=== PATIENT | female | born 1975 | race Caucasian/White ===

== ENCOUNTER 2016-09-26 19:02 | Observation (INO) | payer OTHER ==
[2016-09-26] MEDS ORDERED: NS 1,000 ML IV ONE (19:45)
[2016-09-26 19:51] LABS: % IMMATURE GRANULYOCYTES 0.4 % (0.0-1.1); ABSOLUTE IMMATURE GRANULOCYTES 0.06 10^3/uL (0.00-0.10); ADD DIFF? NO; ADD MORPH? NO; ADD SCAN? NO; ATYPICAL LYMPHOCYTE FLAG 10 (0-99); FRAGMENT RBC FLAG 0 (0-99); HEMATOCRIT 43.4 % (38.0-47.0); HEMOGLOBIN 14.5 g/dL (12.6-16.3); LEFT SHIFT FLG 0 (0-99); LIPEMIA HEMOLYSIS FLAG 80 (0-99); MEAN CELL HEMOGLOBIN 30.9 pg (27.9-34.1); MEAN CELL HEMOGLOBIN CONCENTR. 33.4 g/dL (32.4-36.7); MEAN CELL VOLUME 92.5 fL (81.5-99.8); MEAN PLATELET VOLUME 9.4 fL (8.7-11.7); PLATELET CLUMPS FLAG 20 (0-99); PLATELET COUNT 254 10^3/uL (150-400); RED BLOOD CELL COUNT 4.69 10^6/uL (4.18-5.33); RED CELL DISTRIBUTION WIDTH 13.3 % (11.5-15.2)
[2016-09-26 20:00] LABS: CALCIUM 8.9 mg/dL (8.5-10.4); CARBON DIOXIDE 22 mEq/l (22-31); CHLORIDE 102 mEq/L (97-110); CREATININE 0.7 mg/dL (0.6-1.0); GLOMERULAR FILTRATION RATE > 60; GLUCOSE 95 mg/dL (70-100); SODIUM 138 mEq/L (134-144)
[2016-09-26 20:27] LABS: ANION GAP 14 mEq/L (8-16); POTASSIUM 3.9 mEq/L (3.5-5.2)
--- NOTE | 2016-09-26 20:45 | EDPHY ---
H & P Time Seen by Provider: 09/26/16 20:41 HPI/ROS: Chief complaint. Abdominal pain HPI. 40-year-old female presents emergency department with abdominal pain that began yesterday. It was initially generalized and then has migrated to the right lower abdomen. Hurts to walk. She felt somewhat weak yesterday afternoon on hike. Pain continues today. She has been intermittently sweaty and maybe fever last night. 1 episode of diarrhea this morning but no vomiting. She had similar symptoms 1 month ago. No abdominal history or previous abdominal surgery ROS Constitutional. no fever/chills, no weakness Eyes. no problems with vision ENT. no sore throat, no nasal drainage Cardiovascular. no chest pain Respiratory. no shortness of breath, no cough Abdominal. Right lower quadrant abdominal pain with 1 episode of diarrhea . no problems urinating MS. no calf pain/swelling, no neck/back pain, no joint pain Skin. no rash Lymph. no swollen glands Neuro. no headache, no dizziness, no difficulty walking or with speech Past Medical/Surgical History: Past medical history G2/P 1 with D&C. Otherwise healthy Social History: , nonsmoker, no alcohol Smoking Status: Never smoked Physical Exam: General Appearance: Alert pleasant well-developed female mild distress vital signs significant for initial heart rate 110 Eyes: Pupils equal and round no pallor or injection. ENT, Mouth: Mucous membranes are moist. Respiratory: There are no retractions, lungs are clear to auscultation. Cardiovascular: Regular rate and rhythm. Gastrointestinal: Abdomen is soft and tenderness at McBurney's point. No masses. Normal bowel sounds Neurological: Awake and alert, sensory and motor exams grossly normal. Skin: Warm and dry, no rashes. Musculoskeletal: Neck is supple nontender. Extremities symmetrical, full range of motion. Psychiatric: Patient is oriented X 3, there is no agitation. Constitutional: Initial Vital Signs Temperature (C) 36.8 C 09/26/16 19:22 Heart Rate 110 H 09/26/16 19:22 Respiratory Rate 16 09/26/16 19:22 Blood Pressure 105/84 H 09/26/16 19:22 O2 Sat (%) 96 09/26/16 19:22 O2 Delivery Mode Room Air Allergies/Adverse Reactions: No Known Allergies Allergy (Unverified 09/26/16 19:28) Home Medications: Medication Instructions Recorded NK [No Known Home Meds] 09/26/16 Medical Decision Making - Diagnostics Imaging Results: Imaging Impressions Abdomen Ultrasound 09/26/16 20:54 Impression: Features consistent with appendicitis. Findings were discussed with GRIS GRIJALVA MD at 21:45, on 09/26/2016. Ultrasound of the right lower quadrant reviewed by me and discussed with Homar is consistent with appendicitis Procedures: IV normal saline ED Course/Re-evaluation: Re-evaluation patient is stable. The patient, her , and I discussed imaging and lab results. We discussed treatment plan including recommendation for admission and surgery. They expressed understanding and agreement I consulted surgery and Dr. Ballard sees the patient in the emergency department Patient is given intravenous Invanz. Differential Diagnosis: I considered ovarian cyst, ectopic , appendicitis, diverticulitis - Data Points Laboratory Results: Laboratory Results 09/26/16 19:17 09/26/16 19:17 09/26/16 09/26/16 09/26/16 20:50 19:17 19:17 WBC RBC Hgb Hct MCV MCH MCHC RDW Plt Count MPV Neut % (Auto) Lymph % (Auto) [place] % (Auto) Eos % (Auto) Baso % (Auto) Nucleat RBC Rel Count Absolute Neuts (auto) Absolute Lymphs (auto) Absolute Monos (auto) Absolute Eos (auto) Absolute Basos (auto) Absolute Nucleated RBC Immature Gran % Immature Gran # Sodium 138 mEq/L mEq/L (134-144) Potassium 3.9 mEq/L mEq/L (3.5-5.2) Chloride 102 mEq/L mEq/L (97-110) Carbon Dioxide 22 mEq/l mEq/l (22-31) Anion Gap 14 mEq/L mEq/L (8-16) BUN 10 mg/dL mg/dL (7-23) Creatinine 0.7 mg/dL mg/dL (0.6-1.0) Estimated GFR > 60 Glucose 95 mg/dL mg/dL (70-100) Calcium 8.9 mg/dL mg/dL (8.5-10.4) Beta HCG, Qual NEGATIVE Urine Color PALE YELLOW Urine Appearance CLEAR Urine pH 5.0 (5.0-7.5) Ur Specific [place] 1.006 (1.002-1.030) Urine Protein NEGATIVE (NEGATIVE) Urine Ketones 2+ H (NEGATIVE) Urine Blood NEGATIVE (NEGATIVE) Urine Nitrate NEGATIVE (NEGATIVE) Urine Bilirubin NEGATIVE (NEGATIVE) Urine Urobilinogen NEGATIVE EU EU (0.2-1.0) Ur Leukocyte Esterase NEGATIVE (NEGATIVE) Urine RBC 1-3 /hpf /hpf (0-3) Urine WBC 1-3 /hpf /hpf (0-3) Ur Epithelial Cells TRACE /lpf /lpf (NONE-1+) Urine Mucus TRACE /lpf /lpf (NONE-1+) Urine Glucose NEGATIVE (NEGATIVE) 09/26/16 19:17 WBC 15.76 10^3/uL H 10^3/uL (3.80-9.50) RBC 4.69 10^6/uL 10^6/uL (4.18-5.33) Hgb 14.5 g/dL g/dL (12.6-16.3) Hct 43.4 % % (38.0-47.0) MCV 92.5 fL fL (81.5-99.8) MCH 30.9 pg pg (27.9-34.1) MCHC 33.4 g/dL g/dL (32.4-36.7) RDW 13.3 % % (11.5-15.2) Plt Count 254 10^3/uL 10^3/uL (150-400) MPV 9.4 fL fL (8.7-11.7) Neut % (Auto) 86.4 % H % (39.3-74.2) Lymph % (Auto) 8.2 % L % (15.0-45.0) [place] % (Auto) 4.6 % % (4.5-13.0) Eos % (Auto) 0.0 % L % (0.6-7.6) Baso % (Auto) 0.4 % % (0.3-1.7) Nucleat RBC Rel Count 0.0 % % (0.0-0.2) Absolute Neuts (auto) 13.61 10^3/uL H 10^3/uL (1.70-6.50) Absolute Lymphs (auto) 1.30 10^3/uL 10^3/uL (1.00-3.00) Absolute Monos (auto) 0.73 10^3/uL 10^3/uL (0.30-0.80) Absolute Eos (auto) 0.00 10^3/uL L 10^3/uL (0.03-0.40) Absolute Basos (auto) 0.06 10^3/uL 10^3/uL (0.02-0.10) Absolute Nucleated RBC 0.00 10^3/uL 10^3/uL (0-0.01) Immature Gran % 0.4 % % (0.0-1.1) Immature Gran # 0.06 10^3/uL 10^3/uL (0.00-0.10) Sodium Potassium Chloride Carbon Dioxide Anion Gap BUN Creatinine Estimated GFR Glucose Calcium Beta HCG, Qual Urine Color Urine Appearance Urine pH Ur Specific [place] Urine Protein Urine Ketones Urine Blood Urine Nitrate Urine Bilirubin Urine Urobilinogen Ur Leukocyte Esterase Urine RBC Urine WBC Ur Epithelial Cells Urine Mucus Urine Glucose Medications Given: Ondansetron HCl (Zofran) 4 mg IVP Q4HRS PRN PRN Reason: *Nausea &/or Vomiting Stop: 09/27/16 23:48 Last Admin: 09/27/16 00:05 Dose: 4 mg Discontinued Medications Bupivacaine HCl (Sensorcaine 0.5% Vial) Confirm Administered Dose 30 ml .ROUTE .STK-MED ONE Stop: 09/26/16 22:23 Last Admin: 09/26/16 23:47 Dose: 10 ml Sodium Chloride (Ns) 1,000 mls @ 0 mls/hr IV ONCE ONE; Wide Open PRN Reason: Protocol Stop: 09/26/16 19:46 Last Admin: 09/26/16 19:46 Dose: 1,000 mls Ertapenem 1 gm/ Sodium (Chloride) 100 mls @ 200 mls/hr IV EDNOW ONE PRN Reason: Protocol Stop: 09/26/16 22:41 Last Admin: 09/26/16 23:00 Dose: 100 mls Lidocaine HCl (Lidocaine Hcl 1%) Confirm Administered Dose 300 mg .ROUTE .STK- MED ONE Stop: 09/26/16 22:23 Last Admin: 09/26/16 23:48 Dose: 30 mg Meperidine HCl (Demerol 25 Mg/Ml Syringe) 12.5 mg IVP ONCE ONE Stop: 09/26/16 23:58 Last Admin: 09/27/16 00:00 Dose: 12.5 mg Departure - Departure Disposition: To OP Cath/Surgery Clinical Impression: Acute appendicitis Qualifiers: Acute appendicitis type: with localized peritonitis Qualified Code(s): K35.3 - Acute appendicitis with localized peritonitis Condition: Good
[2016-09-26 21:31] LABS: COLOR PALE YELLOW; LEUKOCYTE ESTERASE,URINE NEGATIVE (NEGATIVE); NITRITE,URINE NEGATIVE (NEGATIVE)
[2016-09-26 21:32] LABS: MUCUS TRACE /lpf (NONE-1+)
[2016-09-26] MEDS ORDERED: ERTAPENEM 1 GM in NS 100 ML IV ONE (22:12)
[2016-09-26] MEDS ORDERED: LIDOCAINE 1% 300 MG/30 ML SDV ONE (22:22)
[2016-09-26] MEDS ORDERED: BUPIVACAINE 0.5% 30 ML SDV ONE (22:22)
--- NOTE | 2016-09-26 22:50 | PDGENHP ---
History and Physical - Chief Complaint Right lower quadrant abdominal pain - History of Present Illness Yasmin is a 40-year-old woman who presents to the hospital after having increasing abdominal pain over the last 24 hours. Initially began mid abdomen and now it is radiated to the right lower quadrant. Ultrasound shows noncompressible tubular structure in the right lower quadrant consistent with acute appendicitis. Patient has leukocytosis fever and anorexia. She is here from [place]. She is currently breast-feeding her [id number] child. Previous surgeries include D and C just over 2 years ago. She takes no medications has no other medical history. History Information - Allergies/Home Medication List Allergies/Adverse Reactions: No Known Allergies Allergy (Unverified 09/26/16 19:28) Home Medications: NK [No Known Home Meds] 09/26/16 [Last Taken Unknown] I have personally reviewed and updated: family history, medical history, social history, surgical history - Past Medical History no pertinent PMH - Surgical History Reports: no pertinent surgical hx Additional surgical history: Dilation and curettage 2 years ago - Family History Positive for: non-pertinent - Social History Smoking Status: Never smoked Review of Systems ROS: 10pt was reviewed & negative except for what was stated in HPI & below Gastrointestinal: Reports: abdominal pain (Approximately 1-2 months ago patient had similar symptoms which were self-limiting) Genitourinary: Denies: dysuria Muscolosketal: Denies: back pain Neurological: Reports: no symptoms Physical Exam Temp Pulse Resp BP Pulse Ox 36.7 C 110 H 16 97/69 L 96 09/26/16 22:38 09/26/16 22:38 09/26/16 22:38 09/26/16 22:38 09/26/16 22:38 Constitutional: uncomfortable Eyes: anicteric sclera, EOMI Ears, Nose, Mouth, Throat: moist mucous membranes Cardiovascular: regular rate and rhythym Peripheral Pulses: 2+: carotid (R), carotid (L), femoral (R), femoral (L), dorsalis-pedis (R), dorsalis-pedis (L) Respiratory: no respiratory distress, no rales or rhonchi Gastrointestinal: no palpable masses, tenderness, No hepatosplenomegally, No guarding, No rebound Genitourinary: no bladder fullness Musculoskeletal: full muscle strength, no muscle tenderness, normal joint ROM Neurologic: AAOx3, sensation intact bilaterally, CN II-XII Intact Psychiatric: interacting appropriately, not anxious Lab Data & Imaging Review 09/26/16 19:17 09/26/16 19:17 WBC 15.76 10^3/uL (3.80-9.50) H 09/26/16 19:17 RBC 4.69 10^6/uL (4.18-5.33) 09/26/16 19:17 Hgb 14.5 g/dL (12.6-16.3) 09/26/16 19:17 Hct 43.4 % (38.0-47.0) 09/26/16 19:17 MCV 92.5 fL (81.5-99.8) 09/26/16 19: MCH 30.9 pg (27.9-34.1) 09/26/16 19: MCHC 33.4 g/dL (32.4-36.7) 09/26/16 19: RDW 13.3 % (11.5-15.2) 09/26/16 19:17 Plt Count 254 10^3/uL (150-400) 09/26/16 19:17 MPV 9.4 fL (8.7-11.7) 09/26/16 19:17 Neut % (Auto) 86.4 % (39.3-74.2) H 09/26/16 19:17 Lymph % (Auto) 8.2 % (15.0-45.0) L 09/26/16 19:17 [place] % (Auto) 4.6 % (4.5-13.0) 09/26/16 19:17 Eos % (Auto) 0.0 % (0.6-7.6) L 09/26/16 19:17 Baso % (Auto) 0.4 % (0.3-1.7) 09/26/16 19: Nucleat RBC Rel Count 0.0 % (0.0-0.2) 09/26/16 19:17 Absolute Neuts (auto) 13.61 10^3/uL (1.70-6.50) H 09/26/16 19:17 Absolute Lymphs (auto) 1.30 10^3/uL (1.00-3.00) 09/26/16 19:17 Absolute Monos (auto) 0.73 10^3/uL (0.30-0.80) 09/26/16 19:17 Absolute Eos (auto) 0.00 10^3/uL (0.03-0.40) L 09/26/16 19:17 Absolute Basos (auto) 0.06 10^3/uL (0.02-0.10) 09/26/16 19:17 Absolute Nucleated RBC 0.00 10^3/uL (0-0.01) 09/26/16 19:17 Immature Gran % 0.4 % (0.0-1.1) 09/26/16 19:17 Immature Gran # 0.06 10^3/uL (0.00-0.10) 09/26/16 19:17 Sodium 138 mEq/L (134-144) 09/26/16 19:17 Potassium 3.9 mEq/L (3.5-5.2) 09/26/16 19:17 Chloride 102 mEq/L (97-110) 09/26/16 19:17 Carbon Dioxide 22 mEq/l (22-31) 09/26/16 19:17 Anion Gap 14 mEq/L (8-16) 09/26/16 19:17 BUN 10 mg/dL (7-23) 09/26/16 19:17 Creatinine 0.7 mg/dL (0.6-1.0) 09/26/16 19:17 Estimated GFR > 60 09/26/16 19:17 Glucose 95 mg/dL (70-100) 09/26/16 19:17 Calcium 8.9 mg/dL (8.5-10.4) 09/26/16 19:17 Beta HCG, Qual NEGATIVE 09/26/16 19:17 Urine Color PALE YELLOW 09/26/16 20:50 Urine Appearance CLEAR 09/26/16 20:50 Urine pH 5.0 (5.0-7.5) 09/26/16 20:50 Ur Specific [place] 1.006 (1.002-1.030) 09/26/16 20:50 Urine Protein NEGATIVE (NEGATIVE) 09/26/16 20:50 Urine Ketones 2+ (NEGATIVE) H 09/26/16 20:50 Urine Blood NEGATIVE (NEGATIVE) 09/26/16 20:50 Urine Nitrate NEGATIVE (NEGATIVE) 09/26/16 20:50 Urine Bilirubin NEGATIVE (NEGATIVE) 09/26/16 20:50 Urine Urobilinogen NEGATIVE EU (0.2-1.0) 09/26/16 20:50 Ur Leukocyte Esterase NEGATIVE (NEGATIVE) 09/26/16 20:50 Urine RBC 1-3 /hpf (0-3) 09/26/16 20:50 Urine WBC 1-3 /hpf (0-3) 09/26/16 20:50 Ur Epithelial Cells TRACE /lpf (NONE-1+) 09/26/16 20:50 Urine Mucus TRACE /lpf (NONE-1+) 09/26/16 20:50 Urine Glucose NEGATIVE (NEGATIVE) 09/26/16 20:50 Imaging Review: Imaging Impressions Abdomen Ultrasound 09/26/16 20:54 Impression: Features consistent with appendicitis. Findings were discussed with GRIS GRIJALVA MD at 21:45, on 09/26/2016. Visualized and Interpreted imaging results: Yes Assessment & Plan Assessment: Acute appendicitis Plan: Laparoscopic appendectomy. Ertapenam for antibiotic prophylaxis and treatment. The risks benefits and alternatives to surgery have been outlined clearly with the patient and her spouse. All questions were addressed. Risks include but are not limited to bleeding, infection with inability to performed/complete surgery need for additional procedures.
[2016-09-26] MEDS ORDERED: GLYCOPYRROLATE 0.2 MG/1 ML VIAL ONE ×2 (22:58→23:24)
[2016-09-26] MEDS ORDERED: ROCURONIUM 50 MG/5 ML VIAL ONE (22:58)
[2016-09-26] MEDS ORDERED: LIDOCAINE 2% 5 ML SDV ONE (22:59)
[2016-09-26] MEDS ORDERED: PROPOFOL 200 MG/20 ML VIAL ONE (22:59)
[2016-09-26] MEDS ORDERED: fentaNYL 100 MCG/2 ML INJ ONE (22:59)
--- NOTE | 2016-09-26 23:03 | PDANEPAE ---
ANE History of Present Illness Appendicitis ANE Past Medical History - Pulmonary History Hx Oxygen in Use at Home: No - Endocrine History Hx Diabetes: No ANE Patient History - Allergies Allergies/Adverse Reactions: No Known Allergies Allergy (Unverified 09/26/16 19:28) - Home Medications Home medications: none Home Medications: NK [No Known Home Meds] 09/26/16 [Last Taken Unknown] - Anes Hx Anes Hx: no prior problems - Smoking Hx Smoking Status: Never smoked ANE Labs/Vital Signs - Labs Result Diagrams: 09/26/16 19:17 09/26/16 19:17 - Vital Signs Blood Pressure: 97/69 Heart Rate: 110 Respiratory Rate: 16 O2 Sat (%): 96 Height: 164 cm Weight: 49.895 kg ANE Physical Exam - Airway Neck exam: FROM Mallampati Score: Class 1 Mouth exam: normal dental/mouth exam - Pulmonary Pulmonary: no respiratory distress - Cardiovascular Cardiovascular: regular rate and rhythym - ASA Status ASA Status: I, E ANE Anesthesia Plan Anesthesia Plan: general endotracheal anesthesia
[2016-09-26] MEDS ORDERED: DEXAMETHASONE 4 MG/ML VIAL ONE (23:18)
[2016-09-26] MEDS ORDERED: ONDANSETRON 4 MG/2 ML VIAL ONE (23:18)
[2016-09-26] MEDS ORDERED: ONDANSETRON 4 MG/2 ML VIAL IVP PRN ×2 (23:21→23:49)
[2016-09-26] MEDS ORDERED: fentaNYL 100 MCG/2 ML INJ IVP PRN (23:21)
[2016-09-26] MEDS ORDERED: PROMETHAZINE HCL 25 MG/ML INJ IVP PRN (23:21)
[2016-09-26] MEDS ORDERED: NALOXONE HCL 0.4 MG/ML INJ IVP PRN (23:21)
[2016-09-26] MEDS ORDERED: NEOSTIGMINE METHYLSULFATE 5 MG/5 ML SYR ONE (23:24)
[2016-09-26] MEDS ORDERED: LR 1,000 ML IV SCH (23:45)
[2016-09-26] MEDS ORDERED: HYDROCODONE/APAP 5/325 TAB PO PRN (23:49)
--- NOTE | 2016-09-26 23:49 | POSTOPPROG ---
Post Op Note Date of Operation: 09/26/16 Surgeon: Ricci Ballard Sinter Machine Operator: none Anesthesiologist: Willa Anesthesia: GET(General Endotracheal) Pre-op Diagnosis: Acute appendicitis Post-op Diagnosis: Supprative appendicitis Procedure: Laparoscopic appendectomy Findings: pus in abdomen. Acute inflammation Inf/Abcess present in the surg proc area at time of surgery?: Yes Depth: Organ Space EBL: Minimal Complications: none Specimen(s): Appendix to pathology
[2016-09-26] MEDS ORDERED: MEPERIDINE 25 MG/ML SYR IVP ONE (23:57)
[2016-09-26] MEDS ORDERED: MEPERIDINE 25 MG/ML SYR ONE (23:59)
--- NOTE | 2016-09-26 23:59 | POSTANESTH ---
Post Anesthetic Evaluation Cardiovascular Status: Normal, Stable Respiratory Status: Normal, Stable Level of Consciousness/Mental Status: Can Participate in Eval Pain Control: Adequate, Prn Tx Ordered Nausea/Vomiting Control: Adequate, Prn Tx Ordered Complications Possibly Related to Anesthesia: None Noted
[2016-09-27] MEDS ORDERED: ONDANSETRON 4 MG/2 ML VIAL ONE (00:04)
--- NOTE | 2016-09-27 00:30 | GOP ---
[f rep st] OPERATIVE REPORT DATE OF OPERATION: SURGEON: Ricci Ballard MD ANESTHESIA: General endotracheal anesthesia. ANESTHESIOLOGIST: Dr. Crouch. PREOPERATIVE DIAGNOSIS: Acute appendicitis. POSTOPERATIVE DIAGNOSIS: Acute appendicitis. PROCEDURE PERFORMED: Laparoscopic appendectomy. FINDINGS: Suppurative appendicitis with pus in the abdomen and acutely inflamed appendix. INDICATIONS: A 40-year-old patient, who presents with acute appendicitis. DESCRIPTION OF PROCEDURE: The patient was brought into the operating room. After induction of endo tracheal anesthesia in supine position, her abdomen was prepped with chlorhexidine and draped steril janette. Time-out procedure was then performed according to institutional standards. Local anesthetic was infused into the skin and subcutaneous tissues of the trocar sites. Open supraumbilical trocar placement was then performed. The abdomen was insufflated to 15 TOR with carbon dioxide. Working t rocars were placed in lower midline under direct visualization. The appendix was brought into the f ield of dissection. The mesentery was divided using LigaSure bipolar energy device. The base of th e appendix was identified and an Endo-JOLENE stapler was used to divide the appendix flush with the bas e. The abdomen was aspirated of all the pus above and below the uterus as well as the right colic g utter. This was then irrigated and aspirated until clear. The appendix was placed in an endo pouch and brought out through the umbilical incision. The working trocars were removed. The abdomen was deflated. The fascia was then reapproximated using 0 Vicryl at the level of the fascia at the umbi licus and all 3 ports were reapproximated at the skin level using 4-0 Monocryl and Dermabond. The p atient was awakened, extubated, taken to the recovery room in stable condition. Needle, instrument, and sponge counts were verified to be correct x2. /[id number]/MODL
[2016-09-27] MEDS: KETOROLAC 15 MG/1 ML SDV IVP SCH ×2 (00:59→05:40)
[2016-09-27 03:04] VITALS: O2SAT 97
[2016-09-27 07:48] VITALS: BP 96/59; PULSE 82; RESP 16; TEMP 97.6
== END 2016-09-27 11:00 | disposition home or self-care (01) ==
LOC: INTOOBSV 22:13 → F3E 09-27 00:29
PROVIDERS: ADMIT Surgery; ATTEND Surgery
PROC: 0DTJ4ZZ Resection of Appendix, Percutaneous Endoscopic Approach (ICD-10-PCS; principal; 2016-09-26 23:00)
DX: K35.80 Unspecified acute appendicitis (principal)
CPT/HCPCS: 44970; 76705; G0378; 96374; J1100; J1335; J1885; J2405; J2704; J2710; J3010